=== PATIENT | male | born 1975 | race Caucasian/White ===

== ENCOUNTER 2017-08-27 20:00 | Emergency (ER) | payer OTHER ==
[~2017-08-27] VITALS: Ht 198.1 cm; Wt 118.2 kg
[2017-08-27] MEDS ORDERED: ADLT ASA LOW81 MG PO (20:16)
[2017-08-27] MEDS ORDERED: PROCARDIA XL30 MG PO (20:17)
[2017-08-27] MEDS ORDERED: HYDROCHLOROT25 MG PO (20:17)
[2017-08-27] MEDS ORDERED: LISINOPRIL10 M1 PO (20:17)
[2017-08-27] MEDS ORDERED: BAYER ASPIRIN E81 MG PO (20:17)
[2017-08-27] MEDS ORDERED: ULTRAM50 M1 PO (22:02)
[2017-08-27] MEDS ORDERED: AMOXICILLIN500 MG PO (22:02)
[2017-08-27 23:07] VITALS: BP 216/148
== END 2017-08-27 23:15 | disposition home or self-care (01) | DRG 605 ==
LOC: ED 20:00
PROC: 0HQFXZZ Repair Right Hand Skin, External Approach (ICD-10-PCS; principal; 2017-08-27)
DX: S61.212A Laceration without foreign body of right middle finger without damage to nail, initial encounter (principal); S62.632A Displaced fracture of distal phalanx of right middle finger, initial encounter for closed fracture; I10 Essential (primary) hypertension; W23.0XXA Caught, crushed, jammed, or pinched between moving objects, initial encounter; Y92.149 Unspecified place in prison as the place of occurrence of the external cause; Z53.20 Procedure and treatment not carried out because of patient's decision for unspecified reasons